=== PATIENT | female | born 1950 | race Caucasian/White ===

== ENCOUNTER → 2018-10-30 | Outpatient (CLI) | payer MEDICARE ==
--- NOTE | 2018-10-30 13:48 | KCIC ---
CT ABD PEL W/ORAL CONTRST ONLY Indication: Left lower quadrant pain, diverticulitis, elevated creatinine. Appendectomy. Colon cancer with resection. Cholecystectomy. Exposure: One or more of the following individualized dose reduction techniques were utilized for this examination: 1. Automated exposure control 2. Adjustment of the mA and/or kV according to patient size 3. Use of iterative reconstruction technique. Comparison: None are available. Technique: No intravenous contrast given. Oral contrast was given. Findings: Evaluation of solid viscera, bowel and vasculature is compromised by the noncontrast technique. Coronary artery calcifications. There is a subtle nodule in the right lung base posteriorly measuring 3 mm. Small subpleural nodule in the left lower lobe posteriorly measures 3 mm. Liver and spleen are not enlarged. No peripancreatic fluid or inflammatory type change. No evidence of adrenal mass. No significant hydronephrosis or urinary tract calculus. Gallbladder surgically absent. Aorta calcified without aneurysm. No significant lymph node enlargement. Gastric wall thickening at the body and fundus, could be due to incomplete distention although inflammatory etiology or mass is difficult to exclude. There is milder thickening of the wall of the gastric antrum and duodenum. No significant small bowel distention. Colonic diverticulosis without evidence of acute colitis. Surgical changes are identified at the colon No significant urinary bladder wall thickening. No evidence of pneumoperitoneum or ascites. No evidence of a pelvic mass. Degenerative changes of the spine IMPRESSION: 1. Proximal gastric wall thickening, to a lesser extent of the gastric antrum and duodenum. Could be due to nondistention, but gastric mass or inflammatory process is not excludable. Endoscopy could further evaluate as indicated. 2. Colonic diverticulosis without evidence of acute colitis. 3. There are a couple of tiny 3 mm pulmonary nodules, significance questionable. Given the history of a primary neoplasm, consider follow-up CT chest in about 6 months. Electronically signed by: Ashish Fallon MD (10/30/2018 1:45 PM) [id number]
== END | disposition home or self-care (01) ==
LOC: KCIC CT 11:04
PROVIDERS: ATTEND Family Medicine
DX: K57.30 Diverticulosis of large intestine without perforation or abscess without bleeding (principal); R91.8 Other nonspecific abnormal finding of lung field; I70.0 Atherosclerosis of aorta; I25.10 Atherosclerotic heart disease of native coronary artery without angina pectoris; Z85.038 Personal history of other malignant neoplasm of large intestine; Z90.49 Acquired absence of other specified parts of digestive tract
CPT/HCPCS: 74176